=== PATIENT | female | born 1970 | race Caucasian/White ===

== ENCOUNTER 2017-08-08 22:59 | Emergency (ER) | payer MEDICAID ==
[~2017-08-08] VITALS: Ht 170.2 cm; Wt 86.2 kg
[2017-08-08 23:08] VITALS: BP_SYST 140
[2017-08-08 23:27] VITALS: BP_SYST 140
== END 2017-08-08 23:27 | disposition home or self-care (01) ==
LOC: SED 22:59
DX: L03.317 Cellulitis of buttock (principal); Z88.0 Allergy status to penicillin
CPT/HCPCS: 99283